=== PATIENT | female | born 1965 ===

== ENCOUNTER 2018-09-26 10:26 | Emergency (ER) | payer MEDICAID ==
[2018-09-26 10:32] VITALS: RESP 16; O2SAT 98
--- NOTE | 2018-09-26 12:14 | C.PDOC ---
History Of Present Illness 53 y/o female presents to the ER complaining of feeling depressed. Patient states that she is feeling depressed because her granddaughter went missing 3 days ago. Patient denies having suicidal ideation, homicidal ideation,hallucinations, and history of psychiatric illness. Time Seen by Provider: 09/26/18 10:40 Chief Complaint (Nursing): Psychiatric Evaluation History Per: Patient History/Exam Limitations: no limitations Onset/Duration Of Symptoms: Days Current Symptoms Are (Timing): Still Present Severity: Moderate Past Medical History Reviewed: Historical Data, Nursing Documentation, Vital Signs Vital Signs: Last Vital Signs Temp 98.3 F 09/26/18 10:31 Pulse 88 09/26/18 10:31 Resp 16 09/26/18 10:31 BP 117/81 09/26/18 10:31 Pulse Ox 98 09/26/18 10:31 - Medical History PMH: Denies: Diabetes, Deep Vein Thrombosis, Hepatitis, HIV, HTN, Seizures, Sexually Transmitted Disease Surgical History: Family History: States: No Known Family Hx - Social History Hx Tobacco Use: Yes Hx Alcohol Use: No Hx Substance Use: No - Immunization History Hx Tetanus Toxoid Vaccination: No Hx Influenza Vaccination: No Hx Pneumococcal Vaccination: No Review Of Systems Except As Marked, All Systems Reviewed And Found Negative. Constitutional: Negative for: Fever, Chills Psych: Negative for: Suicidal ideation Physical Exam - Physical Exam Appears: Non-toxic, No Acute Distress Skin: Normal Color, Warm, Dry, No Rash Head: Atraumatic, Normacephalic Eye(s): bilateral: Normal Inspection, PERRL, EOMI Nose: Normal Oral Mucosa: Moist Neck: Normal ROM, Supple Chest: Symmetrical Cardiovascular: Rhythm Regular, No Friction Rub, No Murmur Respiratory: Normal Breath Sounds, No Rales, No Rhonchi, No Wheezing Gastrointestinal/Abdominal: Normal Exam, Soft, No Tenderness, No Guarding, No Rebound Extremity: Normal ROM, No Swelling Neurological/Psych: Oriented x3, Normal Speech, Normal Motor Gait: Steady ED Course And Treatment O2 Sat by Pulse Oximetry: 98 (RA) Pulse Ox Interpretation: Normal Medical Decision Making Medical Decision Making: Patient has been evaluated by [facility] and cleared for discharge. Patient has been discharged and instructed to follow up with PMD in 1-2 days. Disposition - Disposition Referrals: Bert Moore MD [Medical Doctor] - Disposition: HOME/ ROUTINE Disposition Time: 12:14 Condition: STABLE Additional Instructions: Follow up with the medical doctor within 1-2 days. return if worsened. Instructions: Depression, Adult (DC) Forms: [employer] ([place]se) Print Language: LAO - Clinical Impression Clinical Impression: Major depressive disorder, single episode, unspecified - PA / AUTOPSY ASSISTANT / Resident Statement MD/DO has reviewed & agrees with the documentation as recorded. - Scribe Statement The provider has reviewed the documentation as recorded by the Anthony Spain Provider Attestation All medical record entries made by the Anthony were at my direction and personally dictated by me. I have reviewed the chart and agree that the record accurately reflects my personal performance of the history, physical exam, medical decision making, and the department course for this patient. I have also personally directed, reviewed, and agree with the discharge instructions and disposition.
--- NOTE | 2018-09-26 12:16 | C.PDOC ---
Time Seen by Provider: 09/26/18 10:40 Chief Complaint (Nursing): Psychiatric Evaluation Past Medical History Vital Signs: Last Vital Signs Temp 98.3 F 09/26/18 10:31 Pulse 88 09/26/18 10:31 Resp 16 09/26/18 10:31 BP 117/81 09/26/18 10:31 Pulse Ox 98 09/26/18 10:31 - Medical History PMH: Denies: Diabetes, Deep Vein Thrombosis, Hepatitis, HIV, HTN, Seizures, Sexually Transmitted Disease Family History: States: Unknown Family Hx - Social History Hx Tobacco Use: Yes Hx Alcohol Use: No Hx Substance Use: No - Immunization History Hx Tetanus Toxoid Vaccination: No Hx Influenza Vaccination: No Hx Pneumococcal Vaccination: No ED Course And Treatment O2 Sat by Pulse Oximetry: 98 Disposition - Disposition
[2018-09-26 12:43] VITALS: BP 115/79; PULSE 16; TEMP 98.2
== END 2018-09-26 12:37 | disposition home or self-care (01) ==
LOC: C.ER 10:26
DX: F32.9 Major depressive disorder, single episode, unspecified (principal)